=== PATIENT | male | born 1985 | race Caucasian/White ===

== ENCOUNTER 2020-04-13 15:57 | Emergency (ER) | payer OTHER ==
[~2020-04-13] VITALS: Ht 177.8 cm; Wt 86.2 kg
[2020-04-13] MEDS ORDERED: NORCO 5-325 TA1 EACH PO (17:59)
[2020-04-13] MEDS ORDERED: KEFLEX500 MG PO (17:59)
== END 2020-04-13 18:25 | disposition home or self-care (01) ==
LOC: ED 15:57
PROC: 09QKXZZ Repair Nasal Mucosa and Soft Tissue, External Approach (ICD-10-PCS; principal; 2020-04-13)
DX: S02.2XXB Fracture of nasal bones, initial encounter for open fracture (principal); Z23 Encounter for immunization; W22.8XXA Striking against or struck by other objects, initial encounter
CPT/HCPCS: 12013; 70486; 90471; 90715; 99284-25; J0690; J1170